=== PATIENT | male | born 1985 | race American Indian/Alaskan Native ===

== ENCOUNTER 2020-08-20 11:18 | Emergency (ER) | payer OTHER ==
--- NOTE | 2020-08-20 11:57 | Emergency Department Report ---
ED General Adult HPI - General Chief complaint: Fever Stated complaint: FEVER Source: patient Mode of arrival: Ambulatory Limitations: No Limitations - History of Present Illness Initial comments: 35-year-old male patient with history of diabetes and hypertension presents to the emergency department with complaints of fever for 6 days with associated body aches and nonproductive cough. Symptoms were preceded by diarrhea, which has spontaneously resolved. No known sick contacts. No current steroid or antibiotic use. No recent travel. He has not taken any Tylenol or Motrin today. He has not been tested for COVID-19. Denies headache, neck stiffness, shortness of breath, palpitations, syncope, abdominal pain, vomiting, wheezing, chest pain. Denies all other complaints at this time. - Related Data Allergies Allergy/AdvReac Type Severity Reaction Status Date / Time No Known Allergies Allergy Unverified 08/20/20 11:55 ED Review of Systems ROS: Stated complaint: FEVER Other details as noted in HPI Other: GENERAL: Positive for fever. ENT: Negative for ear pain, difficulty hearing, sore throat, nasal congestion, epistaxis. CARDIOVASCULAR: Negative for chest pain, palpitations, lower extremity swelling. PULMONARY: Positive for nonproductive cough. GASTROINTESTINAL: Negative for abdominal pain, nausea, vomiting, diarrhea, constipation. MUSCULOSKELETAL: Positive for myalgias. NEUROLOGICAL: Negative for headache, seizure, syncope, paresthesias, weakness. INTEGUMENTARY: Negative for erythema, rash, diaphoresis, laceration, ecchymosis. HEMATOLOGICAL: Negative for hemoptysis, hematemesis, hematochezia, hematuria. PSYCHIATRIC: Negative for hallucinations, suicidal ideation, homicidal ideation, anxiety, depression. ED Past Medical Hx - Past Medical History Previous Medical History?: Yes Hx Hypertension: Yes Hx Diabetes: Yes - Surgical History Past Surgical History?: No - Social History Smoking Status: Current Every Day Smoker Substance Use Type: Alcohol ED Physical Exam - General Limitations: No Limitations - Other Other exam information: General: Awake and alert. No acute distress. Head: Atraumatic, normocephalic. Eyes: EOMI. Pupils are equal and round. Normal sclera and conjunctiva. ENT: Oral mucosa is moist. Normal pharyngeal exam. Neck: Supple. No lymphadenopathy. Pulmonary: No respiratory distress. Clear to auscultation bilaterally. Cardiac: Tachycardic. Pulses are palpable and equal bilaterally. No lower extremity cyanosis or edema. Skin: Warm and dry. No rashes. Abdomen: Soft, non-tender, non-protuberant. No guarding, rigidity, or rebound. Bowel sounds are normal. No organomegaly or masses noted. Back: Normal alignment. No CVA tenderness. Extremities: Symmetrical. Full range of motion intact. Neurological: Alert and oriented, appropriately interactive, no focal deficits. Psych: Cooperative. Appropriate mood and affect. Speech is evenly metered. Thoughts are logically construed. ED Course Vital Signs 08/20/20 08/20/20 11:50 17:15 Temperature 99.4 F 99.4 F Pulse Rate 108 H 100 H Respiratory 20 20 Rate Blood Pressure 137/84 Blood Pressure 138/84 [Right] O2 Sat by Pulse 96 99 Oximetry ED Medical Decision Making - Lab Data Result diagrams: 08/20/20 12:03 08/20/20 12:03 - Medical Decision Making Differential diagnosis including but not limited to: pneumonia, dehydration, electrolyte abnormality, viral upper respiratory infection, influenza, pyelonephritis On evaluation, patient remains stable. He is afebrile in the emergency department. Tachycardia resolved without intervention. Chest x-ray is n egative. Urinalysis is unremarkable. Labs show elevated liver enzymes; coagulation panel obtained for further evaluation, which was within normal limits. Patient has no known history of liver disease and denies chronic alcohol use. Etiology of patient's transaminitis is unclear however there is no clinical evidence to suggest acute hepatic failure warranting further diagnostic work-up on an emergent basis at this time. Patient will be discharged home with a copy of his laboratory results been instructed to bring him to his primary care provider next week for further evaluation on an outpa tient basis. Patient expressed understanding is agreeable to plan of care. Strict return precautions provided. Repeat exam is unremarkable and benign. History, exam, diagnostic testing, and current condition do not suggest worrisome pathology to warrant further testing, continued ED treatment, admission, or surgical evaluation at this point. Given the low probability of a significant medical illness, it would be more likely to result in harm than benefit to perform further testing at this stage. Discussed findings, presumptive diagnosis, need for follow-up and specific signs/symptoms that should prompt immediate return to the emergency department. Instructions were explained in detail to the patient in addition to giving written discharge information. Patient expressed understanding and was given the opportunity to ask questions, all of which were satisfactorily answered prior to discharge home. Critical care attestation.: If time is entered above; I have spent that time in minutes in the direct care of this critically ill patient, excluding procedure time. ED Disposition Clinical Impression: History of fever Disposition: DC- TO HOME OR SELFCARE Is pt being admited?: No Does the pt Need Aspirin: No Condition: Stable Instructions: Fever, Adult Additional Instructions: Take Tylenol every 4 hours and Motrin every 8 hours as needed for fever/pain. Rest. Drink plenty of fluids. Wash hands frequently to prevent disease transmission. Do not share food or drinks with others. Follow up with your primary care provider next week regarding your liver enzyme s. Call Saturday to schedule an appointment. Return to the emergency department immediately for new or worsening symptoms. Referrals: KAMALJIT ROSA MD [Staff Physician] - 3-5 Days Time of Disposition: 16:42
[2020-08-20 12:19] LABS: Hematocrit 46.1 % (35.5-45.6); Hemoglobin 15.8 gm/dl (11.8-15.2); Mean Corpuscular HGB Conc 34 % (32-34); Mean Corpuscular Volume 87 fl (84-94); Platelet Count 175 K/mm3 (140-440); Red Cell Distribution Width 14.7 % (13.2-15.2)
[2020-08-20 12:34] LABS: Alanine Aminotransferase 91 units/L (7-56); Albumin 3.9 g/dL (3.9-5); BUN/Creatinine Ratio 6; Blood Urea Nitrogen 7 mg/dL (9-20); Calcium 9.1 mg/dL (8.4-10.2); Hemolysis Index 23
--- NOTE | 2020-08-20 12:43 | XRay Report ---
CHEST 2 VIEWS 12 6 INDICATION / CLINICAL INFORMATION: fever/cough COMPARISON: None available. FINDINGS: SUPPORT DEVICES: None. HEART / MEDIASTINUM: No significant abnormality. LUNGS / PLEURA: No significant pulmonary or pleural abnormality. No pneumothorax. ADDITIONAL FINDINGS: No significant additional findings. IMPRESSION: No significant acute abnormality Signer Name: Juan Carlos Collado MD Signed: 08/20/2020 12:38 PM Workstation Name: [id number]
[2020-08-20 12:52] LABS: RBC Morphology Normal; Total Cells Counted 100
[2020-08-20 12:53] LABS: Platelet Estimate Consistent w Auto
[2020-08-20 13:54] LABS: INR 0.94 (0.87-1.13)
[2020-08-20 13:55] LABS: Partial Thromboplastin Time 31.1 Sec. (24.2-36.6)
[2020-08-20 16:19] LABS: Bilirubin,Urine NEG (Negative); Blood,Urine NEG (Negative); Color,Urine Yellow (Yellow); Mucus,Urine 1+ /HPF
[2020-08-20 17:16] VITALS: BP 138/84
== END 2020-08-20 17:16 | disposition home or self-care (01) ==
LOC: ED 11:18
DX: R50.9 Fever, unspecified (principal); R05 Cough; I10 Essential (primary) hypertension; E11.9 Type 2 diabetes mellitus without complications; F17.200 Nicotine dependence, unspecified, uncomplicated
CPT/HCPCS: 36415; 71046; 80053; 81001; 83735; 85007; 85025; 85610; 85730